=== PATIENT | male | born 1955 | race Two or more races ===

== ENCOUNTER → 2017-07-09 | Outpatient (CLI) | payer OTHER ==
[2017-07-09 01:47] LABS: BASO % 0 % (0-3); EOS # 0.1 x10^3/uL (0.0-0.7); EOS % 1 % (0-3); HEMATOCRIT 28.9 % (39.0-53.0); HEMOGLOBIN 9.6 g/dL (13.0-17.5); LYMPH # 0.7 x10^3/uL (1.0-4.8); LYMPH % 6 % (24-48); MEAN CORPUSCULAR HEMOGLOBIN 23 pg (25-35); MEAN CORPUSCULAR HGB CONC 33 g/dL (31-37); MEAN CORPUSCULAR VOLUME 70 fL (79-100); MONO # 1.5 x10^3/uL (0.0-1.1); MONO % 12 % (0-9); NEUT # 10.3 x10^3uL (1.8-7.7); NEUT % 82 % (31-73); PLATELET COUNT 143 x10^3/uL (140-400); RED BLOOD COUNT 4.11 x10^6/uL (4.30-5.70); RED CELL DISTRIBUTION WIDTH 20.8 % (11.5-14.5); WHITE BLOOD COUNT 12.6 x10^3/uL (4.0-11.0)
[2017-07-09 01:53] LABS: ALBUMIN 1.6 g/dL (3.4-5.0); ALBUMIN/GLOBULIN RATIO 0.4 (1.0-1.7); CALCIUM 7.5 mg/dL (8.5-10.1); TOTAL BILIRUBIN 6.9 mg/dL (0.2-1.0)
[2017-07-09 01:54] LABS: TOTAL PROTEIN 5.8 g/dL (6.4-8.2)
[2017-07-09 02:03] LABS: ANISOCYTOSIS SLIGHT; MICROCYTOSIS MOD; PLT ESTIMATE ADEQUATE (ADEQUATE)
== END | disposition home or self-care (01) ==
LOC: EEVIPCON 01:05 → LAB 01:05
DX: R79.89 Other specified abnormal findings of blood chemistry (principal); R79.1 Abnormal coagulation profile
CPT/HCPCS: 36415; 80053; 85025; 85610